=== PATIENT | female | born 1975 | race Native Hawaiian/Other Pacific Islander ===

== ENCOUNTER 2018-03-30 09:43 | Outpatient (CLI) | payer BC | END 2018-03-30 23:39 | disposition home or self-care (01) | LOC: RAD 09:43 | DX: M54.12 Radiculopathy, cervical region (principal) ==

== ENCOUNTER 2021-07-10 09:58 | Outpatient (CLI) | payer BC | END 2021-07-10 19:34 | disposition home or self-care (01) | LOC: MAMMO 09:58 | PROVIDERS: ATTEND Obstetrics & Gynecology | DX: N60.19 Diffuse cystic mastopathy of unspecified breast (principal); R92.2 Inconclusive mammogram | CPT/HCPCS: G0279 ==